=== PATIENT | male | born 1970 | race Caucasian/White ===

== ENCOUNTER 2018-06-27 22:59 | Emergency (ER) | payer SELFPAY ==
[2018-06-27 23:21] VITALS: BP 142/90
--- NOTE | 2018-06-28 00:49 | ER Document Report ---
HPI - HPI Patient complains to provider of: Rash Pain Level: Denies Context: Patient is a 48-year-old male presenting to the emergency department complaining of rash to his abdomen, left arm and left neck. Patient states he is in the brush using a weed [place] and chainsaw multiple days throughout the week. Patient states he has had this rash intermittently and typically takes steroids for same. Patient states he thinks he was exposed to poison indigo. Patient denies any chest pain, shortness of breath, nausea, vomiting, diarrhea. Patient states rash is itchy. Past medical history: None Medications: None Allergies: None Past Medical History - General Information source: Patient - Social History Smoking Status: Unknown if Ever Smoked Lives with: Family Family History: Reviewed & Not Pertinent Vertical Provider Document - CONSTITUTIONAL Notes: GENERAL: Alert, interacts well. No acute distress. HEAD: Normocephalic, atraumatic. EYES: Pupils equal, round, and reactive to light. Extraocular movements intact. ENT: Oral mucosa moist, tongue midline. Scant vesicular lesions noted left neck following pattern of shirt. NECK: Full range of motion. Supple. Trachea midline. LUNGS: Clear to auscultation bilaterally, no wheezes, rales, or rhonchi. No respiratory distress. HEART: Regular rate and rhythm. No murmur ABDOMEN: Soft, non-tender. Non-distended. Bowel sounds present in all 4 quadrants. Small vesicular lesions noted periumbilical and on entire abdomen. EXTREMITIES: Moves all 4 extremities spontaneously. No edema, normal radial and dorsalis pedis pulses bilaterally. No cyanosis. Erythema with vesicular lesions noted entire left arm anterior surface. BACK: no cervical, thoracic, lumbar midline tenderness. No saddle anesthesia, normal distal neurovascular exam. NEUROLOGICAL: Alert and oriented x3. Normal speech. cranial nerves II through XII grossly intact PSYCH: Normal affect, normal mood. SKIN: Warm, dry, normal turgor. - INFECTION CONTROL TRAVEL OUTSIDE OF THE [place] IN LAST 30 DAYS: No Course - Re-evaluation Re-evalutation: Discussed with patient need for long-term steroid use. Discussed need to follow -up with primary care in the next 24-48 hours. Close return precautions discussed. Patient has no respiratory distress, vomiting, chest tightness or pain, No signs of anaphylaxis. - Vital Signs Vital signs: Temp Pulse Resp BP Pulse Ox 94 18 142/90 H 96 06/27/18 23:17 06/27/18 23:17 06/27/18 23:17 06/27/18 23:17 Discharge - Discharge Clinical Impression: Dermatitis due to plants, including poison indigo, sumac, and oak Condition: Stable Disposition: HOME, SELF-CARE Instructions: Contact Dermatitis (OM) Additional Instructions: You most likely have what is called contact dermatitis. This is an irritation of the skin due to contact with potential poison indigo or poison oak. You should take steroids as prescribed. Use topical creams as prescribed. Please return to the emergency room should the redness or swelling get worse, you developed chest pain or shortness of breath, or any other concerning symptoms. Prescriptions: Hydrocortisone [Hydrocortisone 1% Cream 28.35 Gm] 1 applic TP TID #1 tube Prednisone [Deltasone 20 mg Tablet] 1 tab PO DAILY #42 tablet
[2018-06-28] MEDS ORDERED: PREDNISONE 20 MG TABLET PO ONE (01:00)
== END 2018-06-28 01:12 | disposition home or self-care (01) ==
LOC: ER 22:59
DX: L23.7 Allergic contact dermatitis due to plants, except food (principal)
CPT/HCPCS: 99283; J7512